=== PATIENT | male | born 1990 | race African-American/Black ===

== ENCOUNTER 2016-11-13 01:02 | Emergency (ER) | payer OTHER ==
[~2016-11-13] VITALS: Ht 190.5 cm; Wt 142.5 kg
[~2016-11-13 01:02] MED LIST: ALBUTEROL SULF8.5 GM IH; AMOXICILLIN500 MG PO; AMOXICILLIN875 MG PO; BACTRIM,SEPT1 TABLET PO; FLONASE16 G1 BOTH NARES; KEFLEX500 MG PO; MOTRIN600 MG PO; MOTRIN800 MG PO; MUCUS ER600 MG PO; NAPROSYN500 MG PO; NORCO 5/3251 TABLET PO; ZITHROMAX Z-PA250 MG PO; ZOFRAN ODT4 MG PO; ZYRTEC10 M3 PO
[2016-11-13] MEDS ORDERED: NAPROXEN500 MG PO (03:05)
[2016-11-13 03:14] VITALS: BP 127/88
== END 2016-11-13 03:15 | disposition home or self-care (01) ==
LOC: EME 01:02
DX: S83.91XA Sprain of unspecified site of right knee, initial encounter (principal); X50.9XXA Other and unspecified overexertion or strenuous movements or postures, initial encounter; Y93.02 Activity, running
CPT/HCPCS: 73564; 99281; 99284